=== PATIENT | female | born 1945 | race Caucasian/White ===

== ENCOUNTER 2023-09-24 21:28 | Observation (INO) | payer MEDICARE ==
[~2023-09-24] VITALS: Ht 167.6 cm; Wt 70.9 kg
[2023-09-24 21:41] VITALS: TEMP 96.3
[2023-09-24] MEDS: NS 1,000 ML IV ONE (21:59)
[2023-09-24 22:06] LABS: VENOUS BASE EXCESS -6.4 (-2.0-2.0); VENOUS HCO3 18.2 MMOL/L (23.0-27.0); VENOUS O2 SATURATION 98.7 % (60.0-80.0); VENOUS PARTIAL PRESSURE CO2 33.7 mmHg (38.0-50.0); VENOUS PARTIAL PRESSURE O2 128.3 mmHg (30.0-50.0); VENOUS PH 7.351 UNITS (7.330-7.430); VENOUS STANDARD HCO3 19.3 MMOL/L; VENOUS TOTAL CO2 19.3 MMOL/L (24.0-28.0)
[2023-09-24 22:19] LABS: BASO # 0.1 10^3/uL (0.0-0.2); BASO % 1.9 % (0.0-1.0); EOS # 0.3 10^3/uL (0.0-0.5); EOS % 5.7 % (0.0-3.0); HEMATOCRIT 37.8 % (36.0-47.0); HEMOGLOBIN 12.3 g/dl (12.0-15.5); LYMPH # 1.1 10^3/uL (1.5-5.0); LYMPH % 23.8 % (24.0-44.0); MEAN CORPUSCULAR HEMOGLOBIN 29.5 pg (27.0-33.0); MEAN CORPUSCULAR HGB CONC 32.5 g/dl (32.0-36.5); MEAN CORPUSCULAR VOLUME 90.6 fl (80.0-96.0); MONO # 0.4 10^3/uL (0.0-0.8); MONO % 8.9 % (2.0-8.0); NEUTROPHILS # 2.8 10^3/uL (1.5-8.5); NEUTROPHILS % 59.3 % (36.0-66.0); PLATELET COUNT, AUTOMATED 280 10^3/uL (150-450); RED BLOOD COUNT 4.17 10^6/uL (4.00-5.40); WHITE BLOOD COUNT 4.7 10^3/uL (4.0-10.0)
[2023-09-24 22:41] LABS: CK-MB VALUE MASS < 1.0 NG/ML (<3.6); ETHYL ALCOHOL (ETHANOL) 0.123 % (0.000-0.010)
[2023-09-24 22:43] LABS: ALBUMIN 3.8 G/DL (3.2-5.2); ALKALINE PHOSPHATASE 106 U/L (46-116); ALT/SGPT 33 U/L (7.0-40); AST/SGOT 31 U/L (<34); BILIRUBIN,DIRECT 0.2 MG/DL (<0.4); BILIRUBIN,TOTAL 0.6 MG/DL (0.3-1.2); BLOOD UREA NITROGEN 19 MG/DL (9-23); CALCIUM LEVEL 9.1 MG/DL (8.3-10.6); CARBON DIOXIDE LEVEL 21 MMOL/L (20-31); CHLORIDE LEVEL 101 MMOL/L (98-107); CREATININE FOR GFR 0.83 MG/DL (0.55-1.30); GLOMERULAR FILTRATION RATE > 60.0 (>39); GLUCOSE, FASTING 148 MG/DL (74-106); POTASSIUM SERUM 3.9 MMOL/L (3.5-5.1); SALICYLATE LEVEL < 3.0 MG/DL (<30); SODIUM LEVEL 131 MMOL/L (136-145); TOTAL PROTEIN 6.8 G/DL (5.7-8.2)
[2023-09-24 22:45] LABS: THYROID STIMULATING HORMONE 0.963 uIU/ML (0.55-4.78)
[2023-09-24 22:52] LABS: CPK CREATINE PHOSPHOKINASE 53 U/L (34-145); MB/CK RELATIVE INDEX 1.88 (< OR =4)
[2023-09-24 23:37] LABS: CK-MB VALUE MASS < 1.0 NG/ML (<3.6); CPK CREATINE PHOSPHOKINASE 65 U/L (34-145); MB/CK RELATIVE INDEX 1.53 (< OR =4)
[2023-09-24 23:45] LABS: BARBITURATES URINE NEGATIVE (NEGATIVE)
[2023-09-24 23:46] LABS: AMPHETAMINES LEVEL URINE NEGATIVE (NEGATIVE); BENZODIAZEPINES URINE NEGATIVE (NEGATIVE); CANNABINOIDS URINE NEGATIVE (NEGATIVE); COCAINE METABOLITE URINE NEGATIVE (NEGATIVE); METHADONE URINE NEGATIVE (NEGATIVE); OPIATES URINE NEGATIVE (NEGATIVE); PHENCYCLIDINE URINE NEGATIVE (NEGATIVE)
[2023-09-24 23:58] LABS: OSMOLALITY SERUM 306 MOSM/KG (280-301)
[2023-09-25] MEDS ORDERED: LEVO125T4 PO (01:47)
[2023-09-25] MEDS ORDERED: JARD1TAB PO (01:47)
[2023-09-25] MEDS ORDERED: AMIO200T49 PO (01:47)
[2023-09-25] MEDS ORDERED: METF500T13 PO (01:47)
[2023-09-25] MEDS ORDERED: ENTR1TAB PO (01:47)
[2023-09-25] MEDS ORDERED: METO1TAB7 PO (01:50)
[2023-09-25] MEDS ORDERED: CILO50TA2 PO (01:50)
[2023-09-25] MEDS ORDERED: ATOR40TA75 PO (01:50)
[2023-09-25] MEDS ORDERED: ELIQ5TAB PO (01:50)
[2023-09-25] MEDS ORDERED: FURO20TA2 PO (01:54)
[2023-09-25] MEDS ORDERED: HOME MED LIST COMPLETE! XX SCH (01:55)
[2023-09-25] MEDS: ASPIRIN 81MG CHEW TABLET PO ONE (03:40)
[2023-09-25] MEDS: LEVOTHYROXINE 125MCG TABLET (0.125MG) PO SCH (06:00)
[2023-09-25 06:01] LABS: BASO # 0.1 10^3/uL (0.0-0.2); BASO % 1.4 % (0.0-1.0); EOS # 0.2 10^3/uL (0.0-0.5); EOS % 4.6 % (0.0-3.0); HEMATOCRIT 34.6 % (36.0-47.0); HEMOGLOBIN 11.4 g/dl (12.0-15.5); LYMPH % 23.3 % (24.0-44.0); MEAN CORPUSCULAR HEMOGLOBIN 29.6 pg (27.0-33.0); MEAN CORPUSCULAR HGB CONC 32.9 g/dl (32.0-36.5); MEAN CORPUSCULAR VOLUME 89.9 fl (80.0-96.0); MONO # 0.5 10^3/uL (0.0-0.8); MONO % 12.7 % (2.0-8.0); NEUTROPHILS # 2.4 10^3/uL (1.5-8.5); NEUTROPHILS % 57.8 % (36.0-66.0); PLATELET COUNT, AUTOMATED 269 10^3/uL (150-450); RED BLOOD COUNT 3.85 10^6/uL (4.00-5.40); WHITE BLOOD COUNT 4.2 10^3/uL (4.0-10.0)
[2023-09-25 06:13] LABS: INR 1.16; PARTIAL THROMBOPLASTIN TIME 28.7 SECONDS (24.8-34.2); PROTHROMBIN TIME 14.4 SECONDS (12.5-14.5)
[2023-09-25 06:30] LABS: ALBUMIN 3.3 G/DL (3.2-5.2); ALKALINE PHOSPHATASE 93 U/L (46-116); ALT/SGPT 30 U/L (7.0-40); AST/SGOT 24 U/L (<34); BILIRUBIN,TOTAL 0.6 MG/DL (0.3-1.2); BLOOD UREA NITROGEN 17 MG/DL (9-23); CALCIUM LEVEL 8.7 MG/DL (8.3-10.6); CARBON DIOXIDE LEVEL 26 MMOL/L (20-31); CHLORIDE LEVEL 104 MMOL/L (98-107); CHOLESTEROL LEVEL 168 MG/DL (<200); CREATININE FOR GFR 0.77 MG/DL (0.55-1.30); FOLATE 11.16 NG/ML (>5.4); GLOMERULAR FILTRATION RATE > 60.0 (>39); GLUCOSE, FASTING 109 MG/DL (74-106); HDL CHOLESTEROL 69.9 MG/DL (>40); LDL CHOLESTEROL 78.3 MG/DL (<100); MAGNESIUM LEVEL 1.9 MG/DL (1.8-2.4); NON-HDL-C 98.1 MG/DL; POTASSIUM SERUM 4.3 MMOL/L (3.5-5.1); SODIUM LEVEL 133 MMOL/L (136-145); TOTAL PROTEIN 5.8 G/DL (5.7-8.2); TRIGLYCERIDES LEVEL 99 MG/DL (<150); VITAMIN B12 LEVEL 255 PG/ML (211-911)
[2023-09-25 06:45] LABS: HEMOGLOBIN A1c 5.8 % (4.0-6.0)
[2023-09-25] MEDS: ASPIRIN 81MG CHEW TABLET PO SCH (09:00)
[2023-09-25] MEDS: ATORVASTATIN 20 MG TAB PO SCH (09:00)
[2023-09-25] MEDS: CILOSTAZOL 100 MG TAB (PLETAL) PO SCH (09:49)
[2023-09-25] MEDS: AMIODARONE 200 MG TAB (PACERONE) PO SCH (09:50)
[2023-09-25] MEDS: FUROSEMIDE 20 MG TAB PO SCH (09:50)
[2023-09-25 09:52] VITALS: BP 168/74
[2023-09-25] MEDS: METOPROLOL SUCC (TopROL XL) 50MG **XL** TAB PO SCH (09:52)
[2023-09-25] MEDS: ENTRESTO 24-26MG TABLET (SACUBITRIL/VALSARTAN) PO SCH (09:52)
[2023-09-25] MEDS: APIXABAN 5 MG TAB (ELIQUIS) PO SCH (09:52)
[2023-09-25] MEDS: LORazepam 0.5 MG TAB PO PRN (11:56)
[2023-09-25 14:29] VITALS: O2SAT 95
[2023-09-25 15:00] VITALS: BP 145/76
== END 2023-09-25 16:29 | disposition home or self-care (01) ==
LOC: EDBD 21:28 → M ED 21:28 → M ED INP 09-25 02:24
PROVIDERS: ADMIT Internal Medicine; ATTEND Internal Medicine
DX: R55 Syncope and collapse (principal); R53.1 Weakness; I50.30 Unspecified diastolic (congestive) heart failure; I48.91 Unspecified atrial fibrillation; Z79.01 Long term (current) use of anticoagulants; E78.5 Hyperlipidemia, unspecified; E03.9 Hypothyroidism, unspecified; R73.03 Prediabetes; Z79.84 Long term (current) use of oral hypoglycemic drugs; Z79.899 Other long term (current) drug therapy; Z88.8 Allergy status to other drugs, medicaments and biological substances
CPT/HCPCS: 36415; 70450; 70544; 70547; 70551; 71045; 80048; 80053; 80061; 80076; 80143; 80307; 81001; 82077; 82140; 82550; 82553; 82607; 82746; 82803; 83036; 83605; 83735; 83930; 84443; 84484; 85025; 85610; 85730; 87040; 87088; 87186; 93005; 93041; 93306; 94760; 96374; 97161; 99285; G0378